=== PATIENT | female | born 1945 | race Caucasian/White ===

== ENCOUNTER → 2017-02-11 | Day surgery (SDC) | payer MEDICARE, MEDICAID ==
[~2017-02-11] MED LIST: ACAR25TA PO; ALUMINUM/MAGNESIUM/SIMETH 30 ML CUP ONE; BUPR100T PO; CYAN1TAB21 SL; CYCL1TAB29 PO; DICL75TA PO; DULO1CAP3 PO; EPIN0.1S INJ; ERGO1CAP30 PO; GABA600T PO; HYDR-3583 PO; HYDROmorphone HCL PF 2 MG/ML VIAL ONE; LACTATED RINGER'S 1000 ML INJ 1,000 ML ONE; LISI40TA PO; MEPERIDINE HCL 25 MG/ML VIAL ONE; METF1000 PO; OMEP20TA PO; ONDANSETRON HCL 4 MG/2 ML VIAL ONE; PROPOFOL 500 MG/50 ML BTL IV ONE
--- NOTE | 2017-02-11 11:21 | GIPROC ---
[facility] [address] [facility], [address] EGD PROCEDURE REPORT EXAM DATE: 02/11/2017 PATIENT NAME: Vaishali Abernathy MR #: [id number] BIRTHDATE: 1945 ATTENDING: Jami Leach MD ORDER #: [id number] AUTOMATION QA TESTER: STATUS: outpatient INDICATIONS: The patient is a 71 yr old female here for an EGD due to liver cirrhosis PROCEDURE PERFORMED: EGD w/ band ligation of varices MEDICATIONS: None and Per Anesthesia. TOPICAL ANESTHETIC: none CONSENT: The patient understands the risks and benefits of the procedure and understands that these risks include, but are not limited to: sedation, allergic reaction, infection, perforation and/or bleeding. Alternative means of evaluation and treatment include, among others: physical exam, x-rays, and/or surgical intervention. The patient elects to proceed with this endoscopic procedure. medical equipment was checked for proper function. Hand hygiene and appropriate measures for infection prevention was taken. After the risks, benefits and alternatives of the procedure were thoroughly explained, Informed consent was verified, confirmed and timeout was successfully executed by the treatment team. The patient was anesthetized with topical anesthesia and the EG-[id number] ([id number]) endoscope was introduced through the mouth and advanced to the proximal jejunum. Retroflexion was not performed The gastroscope was then slowly withdrawn and removed. Esophageal varices garde 3 - 3 colums-3 bands applied. ADVERSE EVENTS: There were no complications. IMPRESSIONS: 1. Esophageal varices garde 3 - 3 colums-3 bands applied 2. Retroflexion was not performed RECOMMENDATIONS: 1. Anti-reflux regimen 2. Continue PPI PATIENT CONDITION: stable DISPOSITION: Home REPEAT EXAM: Return 6 weeks EGD Jami Leach MD eSigned: Jami Leach MD 02/11/2017 11:21 AM cc: Brayden Castillo
== END | disposition home or self-care (01) ==
LOC: ESDC 08:50
PROVIDERS: ATTEND Internal Medicine Gastroenterology
DX: K74.60 Unspecified cirrhosis of liver (principal); I85.00 Esophageal varices without bleeding
CPT/HCPCS: 00740; 43244; J1170; J2175; J2405; J7120

== ENCOUNTER → 2017-04-13 | Day surgery (SDC) | payer MEDICARE, OTHER ==
[~2017-04-13] MED LIST changes: -HYDROmorphone HCL PF 2 MG/ML VIAL ONE; +LEVOFLOXACIN 500 MG PREMIX INJ 100 ML IV ONE; -MEPERIDINE HCL 25 MG/ML VIAL ONE; +PROPOFOL 200 MG/20 ML AMP IV ONE; -PROPOFOL 500 MG/50 ML BTL IV ONE
--- NOTE | 2017-04-13 15:04 | GIPROC ---
[facility] [address] [facility], [address] EGD PROCEDURE REPORT EXAM DATE: 04/13/2017 PATIENT NAME: Vaishali Abernathy MR #: [id number] BIRTHDATE: 1945 ATTENDING: Jami Leach MD ORDER #: [id number] MECHANICS SUPERVISOR: Abbey Augustin NOTE KEEPER STATUS: outpatient INDICATIONS: The patient is a 72 yr old female here for an EGD due to liver cirrhosis esophageal varices PROCEDURE PERFORMED: EGD w/ band ligation of varices MEDICATIONS: None and Per Anesthesia. TOPICAL ANESTHETIC: none CONSENT: The patient understands the risks and benefits of the procedure and understands that these risks include, but are not limited to: sedation, allergic reaction, infection, perforation and/or bleeding. Alternative means of evaluation and treatment include, among others: physical exam, x-rays, and/or surgical intervention. The patient elects to proceed with this endoscopic procedure. medical equipment was checked for proper function. Hand hygiene and appropriate measures for infection prevention was taken. After the risks, benefits and alternatives of the procedure were thoroughly explained, Informed consent was verified, confirmed and timeout was successfully executed by the treatment team. The patient was anesthetized with topical anesthesia and the EG-[id number] ([id number]) endoscope was introduced through the mouth and advanced to the proximal jejunum. The gastroscope was then slowly withdrawn and removed. Esophageal varices grade 2- s/p banding -3 bands applied s/p gastric bypass. ADVERSE EVENTS: There were no complications. 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 Continue PPI 2. Avoid NSAIDS 3. Soft diet for 1-3 days PATIENT CONDITION: stable DISPOSITION: Home REPEAT EXAM: Return 3 months EGD Jami Leach MD eSigned: Jami Leach MD 04/13/2017 3:04 PM cc: Brayden Castillo
== END | disposition home or self-care (01) ==
LOC: ESDC 13:17
PROVIDERS: ATTEND Internal Medicine Gastroenterology
DX: K74.60 Unspecified cirrhosis of liver (principal); I85.00 Esophageal varices without bleeding; Z98.84 Bariatric surgery status
CPT/HCPCS: 00740; 43244; J1956; J2405; J7120